=== PATIENT | male | born 1995 | race Caucasian/White ===

== ENCOUNTER 2016-07-29 00:12 | Emergency (ER) | payer OTHER ==
[2016-07-29] MEDS ORDERED: IBUPROFEN 600 MG TABLET (FP) PO ONE ×2 (00:31→00:39)
[2016-07-29] MEDS ORDERED: ALBUTEROL SO4 2.5/IPRATROPIUM 0.5 INH SOL 3 ML VIAL.NEB. NEB ONE ×2 (00:31→00:39)
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
[2016-07-29 00:36] VITALS: BP 124/71; PULSE 76; TEMP 97.9; BMI 22.8
[2016-07-29] MEDS ORDERED: predniSONE 20 MG TABLET (UD) PO ONE (01:21)
[2016-07-29] MEDS ORDERED: predniSONE 20 MG TABLET (UD) ONE (01:27)
== END 2016-07-29 01:28 | disposition home or self-care (01) ==
LOC: JER 00:12
PROC: 3E0F7GC Introduction of Other Therapeutic Substance into Respiratory Tract, Via Natural or Artificial Opening (ICD-10-PCS; principal; 2016-07-29)
DX: M54.6 Pain in thoracic spine (principal); J45.901 Unspecified asthma with (acute) exacerbation; V43.52XA Car driver injured in collision with other type car in traffic accident, initial encounter; Y92.414 Local residential or business street as the place of occurrence of the external cause; Y93.89 Activity, other specified; Y99.8 Other external cause status
CPT/HCPCS: 99282-25

== ENCOUNTER 2017-01-31 15:58 | Emergency (ER) | payer OTHER ==
--- NOTE | 2017-01-31 16:03 | PDOC ---
History of Present Illness <Morgan Luna - Last Filed: 01/31/17 16:41> - General History Source: Patient Exam Limitations: No Limitations - History of Present Illness Initial Comments: 01/31/17 16:26 The patient is a 21 year old male with a significant PMH of asthma who presents to the emergency department with an asthma exacerbation and cold-like symptoms beginning a few days ago. The patient reports waking up this morning and being very short of breath. He notes that he has been congested with an associated dry cough for a few days, which has made it difficult for him to breathe. He notes he ran out of his Albuterol inhaler 2 days ago. The patient reports he was last on Prednisone months ago. The patient reports he does not have a [employer] Developer. The patient denies chest pain, headache and dizziness. Denies fever, chills, nausea, vomit, diarrhea and constipation. Denies dysuria, frequency, urgency and hematuria. Allergies: NKA Past surgical history: None reported. Social history: No reported cigarette, alcohol, or drug use. PCP: Dr. Fuller (Hasn't seen yet, appt. on 02/10) <Miki Pitt - Last Filed: 01/31/17 16:43> - General Chief Complaint: Asthma Stated Complaint: Asthma Time Seen by Provider: 01/31/17 16:03 Past History - Past Medical History Asthma: Yes - Suicide/Smoking/Psychosocial Hx Smoking History: Never smoked Have you smoked in the past 12 months: No Hx Alcohol Use: No Drug/Substance Use Hx: No <Morgan Luna - Last Filed: 01/31/17 16:41> <Miki Pitt - Last Filed: 01/31/17 16:43> - Past Medical History Allergies/Adverse Reactions: Allergies Allergy/AdvReac Type Severity Reaction Status Date / Time No Known Allergies Allergy Verified 01/31/17 16:15 Home Medications: Ambulatory Orders Albuterol 0.083% Nebulizer Andria [Ventolin 0.083% Nebulizer Soln -] 1 neb NEB Q6H PRN #30 vial 11/22/15 Albuterol Sulfate Inhaler - [Ventolin HFA Inhaler -] 1 - 2 inh PO QID PRN #1 inhaler 11/22/15 Guaifenesin [Mucinex -] 600 mg PO BID #14 tablet.er 11/22/15 Prednisone [Deltasone] 20 mg PO DAILY #12 tablet 11/22/15 Albuterol Sulfate Inhaler - [Ventolin Hfa Inhaler -] 1 - 2 inh PO Q4H PRN #1 inhaler 07/29/16 Cyclobenzaprine HCl [Flexeril 10 mg] 10 mg PO BID PRN #6 tablet 07/29/16 Prednisone [Deltasone -] 20 mg PO DAILY #4 tablet 07/29/16 Albuterol Sulfate Inhaler - [Ventolin HFA Inhaler -] 1 - 2 inh PO QID #1 inhaler 01/31/17 Azithromycin [Zithromax -] 250 mg PO UTDICT #6 tab 01/31/17 Methylprednisolone [Medrol Dose Arsenio] 4 mg PO ASDIR #21 tablet 01/31/17 Review of Systems - Review of Systems Able to Perform ROS?: Yes Comments:: 01/31/17 16:26 GENERAL/CONSTITUTIONAL: No fever or chills. No weakness. HEAD, EYES, EARS, NOSE AND THROAT: No change in vision. No ear pain or discharge. No sore throat. CARDIOVASCULAR: (+) Shortness of breath. No chest pain. RESPIRATORY: (+) Nasal congestion. (+) Dry cough. (+) Wheezing. No hemoptysis. GASTROINTESTINAL: No nausea, vomiting, diarrhea or constipation. GENITOURINARY: No dysuria, frequency, or change in urination. MUSCULOSKELETAL: No joint or muscle swelling or pain. No neck or back pain. SKIN: No rash NEUROLOGIC: No headache, vertigo, loss of consciousness, or change in strength/ sensation. ENDOCRINE: No increased thirst. No abnormal weight change. HEMATOLOGIC/LYMPHATIC: No anemia, easy bleeding, or history of blood clots. ALLERGIC/IMMUNOLOGIC: No hives or skin allergy. <Miki Pitt - Last Filed: 01/31/17 16:43> *Physical Exam - Vital Signs Last Vital Signs Temp Pulse Resp BP Pulse Ox 98.1 F 110 H 17 138/97 100 01/31/17 16:15 01/31/17 16:15 01/31/17 16:15 01/31/17 16:15 01/31/17 16:15 - Physical Exam Comments: 01/31/17 16:26 GENERAL: Awake, alert, and fully oriented, in no acute distress HEAD: No signs of trauma EYES: PERRLA, EOMI, sclera anicteric, conjunctiva clear ENT: Auricles normal inspection, hearing grossly normal, nares patent, oropharynx clear without exudates. Moist mucosa NECK: Normal ROM, supple, no lymphadenopathy, JVD, or masses LUNGS: (+) Bilateral wheezing. No crackles. HEART: Regular rate and rhythm, normal S1 and S2, no murmurs, rubs or gallops ABDOMEN: Soft, nontender, normoactive bowel sounds. No guarding, no rebound. No masses EXTREMITIES: Normal range of motion, no edema. No clubbing or cyanosis. No cords, erythema, or tenderness NEUROLOGICAL: Cranial nerves II through XII grossly intact. Normal speech, normal gait SKIN: Warm, Dry, normal turgor, no rashes or lesions noted. <Miki Pitt - Last Filed: 01/31/17 16:43> *DC/Admit/Observation/Transfer - Discharge Dispostion Admit: No - Attestations Physician Attestion: 01/31/17 16:03 I, Dr. Morgan Luna, attest that this document has been prepared under my direction and personally reviewed by me in its entirety. I further attest, that it accurately reflects all work, treatment, procedures and medical decision -making performed by me. <Morgan Luna - Last Filed: 01/31/17 16:41> - Attestations Scribe Attestion: 01/31/17 16:27 Documentation prepared by Miki Pitt, acting as medical technologist clinical for Morgan Luna DO. <Miki Pitt - Last Filed: 01/31/17 16:43> Diagnosis at time of Disposition: Exacerbation of asthma Qualifiers: Asthma severity: mild Asthma persistence: intermittent Qualified Code(s): J45.21 - Mild intermittent asthma with (acute) exacerbation Acute bronchitis Qualifiers: Bronchitis organism: other organism Qualified Code(s): J20.8 - Acute bronchitis due to other specified organisms - Discharge Dispostion Disposition: HOME Condition at time of disposition: Improved - Prescriptions Prescriptions: Albuterol Sulfate Inhaler - [Ventolin HFA Inhaler -] 1 - 2 inh PO QID #1 inhaler Azithromycin [Zithromax -] 250 mg PO UTDICT #6 tab Methylprednisolone [Medrol Dose Arsenio] 4 mg PO ASDIR #21 tablet - Patient Instructions Printed Discharge Instructions: Asthma -- Adult, DI for Acute Bronchitis Additional Instructions: Navin - Keep your appointment with your new doctor. Use the inhaler as needed. The antibiotics and the steroid are both for five days. Return to us if worse or new symptoms occur. Cliff- Dr. Morgan Luna
[2017-01-31] MEDS ORDERED: ALBUTEROL SO4 0.083% IH SOL 2.5 MG/3 ML VIAL.NEB. NEB ONE (16:06)
[2017-01-31] MEDS ORDERED: DEXAMETHASONE SOD PHOSPHATE 10 MG/1 ML VIAL ONE (16:06)
[2017-01-31] MEDS ORDERED: methylPREDNISolone NA SUCC 125 MG/2 ML VIAL IVPUSH ONE (16:06)
[2017-01-31] MEDS ORDERED: ALBUTEROL SO4 2.5/IPRATROPIUM 0.5 INH SOL 3 ML VIAL.NEB. NEB ONE ×2 (16:06)
[2017-01-31] MEDS ORDERED: AZITHROMYCIN IVPB 500 MG in DEXTROSE 5%-WATER - 250 ML IVPB ONE (16:08)
[2017-01-31 16:21] VITALS: TEMP 98.1; BMI 22.1
[2017-01-31] MEDS ORDERED: AZITHROMYCIN IVPB 250 ML IVPB ONE (16:22)
[2017-01-31] MEDS ORDERED: methylPREDNISolone NA SUCC 125 MG/2 ML VIAL ONE ×2 (16:22→16:23)
[2017-01-31 18:23] VITALS: BP 142/75; PULSE 99
== END 2017-01-31 18:25 | disposition home or self-care (01) ==
LOC: JER 15:58
PROC: 3E0F7GC Introduction of Other Therapeutic Substance into Respiratory Tract, Via Natural or Artificial Opening (ICD-10-PCS; principal; 2017-01-31)
PROC: 3E0F7GC Introduction of Other Therapeutic Substance into Respiratory Tract, Via Natural or Artificial Opening (ICD-10-PCS; 2017-01-31)
PROC: 3E03329 Introduction of Other Anti-infective into Peripheral Vein, Percutaneous Approach (ICD-10-PCS; 2017-01-31)
PROC: 3E0333Z Introduction of Anti-inflammatory into Peripheral Vein, Percutaneous Approach (ICD-10-PCS; 2017-01-31)
DX: J45.20 Mild intermittent asthma, uncomplicated (principal); J20.8 Acute bronchitis due to other specified organisms
CPT/HCPCS: 71010-TC; 99282-25

== ENCOUNTER 2017-02-01 14:30 | Emergency (ER) | payer OTHER ==
[2017-02-01] MEDS ORDERED: ALBUTEROL SO4 2.5/IPRATROPIUM 0.5 INH SOL 3 ML VIAL.NEB. NEB ONE ×2 (14:47→14:51)
[2017-02-01] MEDS ORDERED: DEXAMETHASONE SOD PHOSPHATE 10 MG/1 ML VIAL ONE (14:47)
[2017-02-01] MEDS ORDERED: DEXAMETHASONE SOD PHOSPHATE 10 MG/1 ML VIAL IM ONE (14:50)
--- NOTE | 2017-02-01 14:54 | PDOC ---
History of Present Illness - General Chief Complaint: Shortness of Breath Stated Complaint: PCP SENT Time Seen by Provider: 02/01/17 14:50 History Source: Patient Exam Limitations: No Limitations - History of Present Illness Initial Comments: 02/01/17 14:54 Patient return to emergency department per my request. Was noted this morning to have a pneumomediastinum by Dr. Ornelas, radiologist. Multiple attempts to locate patient via cell phone and emergency contact number were unsuccessful. Was notified by the [facility] to return to ER for further evaluation and testing. . this patient was discharged yesterday with an asthma exacerbation with multiple medication prescriptions. Patient admits he Did not receive these medications due to some financial constraints and has not used any medication since is discharge yesterday. States has been out today, feels moderately improved but feels still is coughing with some intermittent wheezing. Denies alcohol or drug use. Denies fever, denies phlegm production. Has albuterol nebulizer at home but has not used that for relief. 02/01/17 14:56 Timing/Duration: reports: getting worse Severity: reports: moderate Associated Symptoms: reports: cough, facial pain, fever/chills, nasal congestion , nasal drainage, shortness of breath. denies: sore throat, wheezing Past History - Travel Traveled outside of the country in the last 30 days: No Close contact w/someone who was outside of country & ill: No - Past Medical History Allergies/Adverse Reactions: Allergies Allergy/AdvReac Type Severity Reaction Status Date / Time No Known Allergies Allergy Verified 02/01/17 15:05 Home Medications: Ambulatory Orders Albuterol Sulfate Inhaler - [Ventolin Hfa Inhaler -] 1 - 2 inh PO Q4H PRN #1 inhaler 07/29/16 Methylprednisolone [Medrol Dose Arsenio] 4 mg PO ASDIR #21 tablet 01/31/17 Acetaminophen W/ Codeine Liq [Tylenol .W/Codeine Oral Solution -] 5 ml PO Q4H # 30 ml MDD 5 02/01/17 Albuterol Sulfate [Proair Respiclick] 90 mcg IH Q6H PRN #1 aer.pow.ba 02/01/17 Prednisolone 45 mg PO BID #120 ml 02/01/17 Asthma: Yes CVA: No COPD: No DVT: No - Immunization History Immunization Up to Date: Yes - Suicide/Smoking/Psychosocial Hx Smoking History: Never smoked Have you smoked in the past 12 months: No Hx Alcohol Use: No Drug/Substance Use Hx: No Substance Use Type: None Review of Systems - Review of Systems Able to Perform ROS?: Yes Is the patient limited [place] proficient: Yes Constitutional: Yes: Symptoms Reported, See HPI, Loss of Appetite, Malaise. No : Fever HEENTM: Yes: Symptoms Reported, See HPI, Nose Congestion. No: Throat Pain Respiratory: Yes: Symptoms reported, See HPI, Cough, Shortness of Breath, Wheezing Cardiac (ROS): No: Symptoms Reported ABD/GI: Yes: See HPI, Nausea. No: Symptoms Reported, Vomiting : No: Symptoms Reported Musculoskeletal: No: Symptoms Reported All Other Systems: Reviewed and Negative *Physical Exam - Physical Exam General Appearance: Yes: Nourished, Appropriately Dressed, Mild Distress. No: Apparent Distress HEENT: positive: CHARI, Normal ENT Inspection, TMs Normal, Pharynx Normal Neck: positive: Supple. negative: Tender, Lymphadenopathy (R), Lymphadenopathy (L) Respiratory/Chest: positive: Wheezing (course inspiratory and expiratory breath sounds with wheezing and some grunting). negative: Chest Tender, Lungs Clear, Normal Breath Sounds Gastrointestinal/Abdominal: positive: Soft. negative: Tender Musculoskeletal: positive: Normal Inspection. negative: CVA Tenderness Extremity: positive: Normal Capillary Refill, Normal Range of Motion Integumentary: positive: Dry, Warm, Ecchymosis, Bruising Neurologic: positive: prepress proofer II-XII NML intact, Fully Oriented, Alert, Normal Mood/ Affect, Motor Strength 5/5. negative: Normal Response ED Treatment Course - RADIOLOGY Radiology Studies Ordered: Category Date Time Status CHEST CT WITHOUT CONTRAST [CT] Stat CT Scan 02/01/17 14:53 Ordered Progress Note - Progress Note Progress Note: Return to emergency department for reevaluation. Patient states since mildly improved but has had no medication since yesterday. We'll obtain CAT scan of chest to rule out any changes or improvement to pneumomediastinum noted in chest x-ray yesterday. We'll provide additional DuoNeb's and an additional 10 mg of Decadron Medical Decision Making - Medical Decision Making 02/01/17 17:09 Patient states feels mild improvement, is waiting for CAT scan report. Denies exquisite shortness of breath but has continued pleuritic type chest pain. Patient admits to not receiving any medications that were prescribed yesterday and has not used any of his nebulizing medications at home. Has continuous requests for promethazine with codeine for his cough. Discussed that promethazine with codeine is not recommended for an antitussive anymore due to issues with HILDA however we'll give short course of Tylenol with codeine to help with cough suppressant and mild pain relief. Fighting additional DuoNeb now while waiting for CT report. 17:30 pulmonology paged 02/01/17 18:02 CAT scan report reveals a pneumomediastinum and subcutaneous air in the supraclavicular regions of the neck bilaterally there is no visible pneumothorax. Patient remains asymptomatic, has some mild intermittent wheezing but has significantly resolved after 2 DuoNeb's and some Decadron. Patient understands plan, will review CAT scan when pulmonology returns call, paged second time 02/01/17 18:55 No return phone call from pulmonology. Patient discharged in agrees to follow up here tomorrow for repeat chest x-ray. Understands plan for nebulizers, steroids, and will use a short course of Tylenol with codeine for severe cough. Her stands will return immediately for shortness breath, chest pain, fevers or worsening of wheezing. *DC/Admit/Observation/Transfer Diagnosis at time of Disposition: Pneumomediastinum Asthma exacerbation Qualifiers: Asthma severity: moderate Asthma persistence: unspecified Qualified Code(s): J45.901 - Unspecified asthma with (acute) exacerbation - Discharge Dispostion Disposition: HOME Condition at time of disposition: Stable - Prescriptions Prescriptions: Acetaminophen W/ Codeine Liq [Tylenol .W/Codeine Oral Solution -] 5 ml PO Q4H # 30 ml MDD 5 Albuterol Sulfate [Proair Respiclick] 90 mcg IH Q6H PRN #1 aer.pow.ba PRN Reason: Wheezing Prednisolone 45 mg PO BID #120 ml - Referrals - Patient Instructions Printed Discharge Instructions: DI for Asthma -- Adult Additional Instructions: Rest, drink lots of fluids: Teas, water, soups, Pedialyte Saltwater gargles Steamy showers/seem to face break up mucus Avoid contact with others until fevers and cough resolved Lots of handwashing and good hygiene Continue [id number] medications for symptomatic relief Tylenol or Motrin for fever and pain Continue albuterol nebulizers every 4-6 hours for the next 2 days then as needed for continued cough Prednisone as directed until completed May use Tylenol with codeine 1 teaspoon every 6 hours for severe cough, understanding will make dizzy and sleepy Followup with private physician in one to 2 days Return to emergency department / pediatric hospital for worsened symptoms, fevers, dehydration - Post Discharge Activity Forms/Work/School Notes: Back to Work
[2017-02-01 15:05] VITALS: BP 129/85; PULSE 94; TEMP 98.2; BMI 22.1
== END 2017-02-01 19:01 | disposition home or self-care (01) ==
LOC: JER 14:30
PROC: 3E0337Z Introduction of Electrolytic and Water Balance Substance into Peripheral Vein, Percutaneous Approach (ICD-10-PCS; principal; 2017-02-01)
PROC: 3E023GC Introduction of Other Therapeutic Substance into Muscle, Percutaneous Approach (ICD-10-PCS; 2017-02-01)
DX: J98.2 Interstitial emphysema (principal); J45.901 Unspecified asthma with (acute) exacerbation
CPT/HCPCS: 71250-TC; 99282-25

== ENCOUNTER 2017-02-02 18:22 | Emergency (ER) | payer OTHER ==
[2017-02-02 18:40] VITALS: BP 135/71; PULSE 87; TEMP 98.7; BMI 22.1
--- NOTE | 2017-02-02 18:41 | PDOC ---
History of Present Illness - General Chief Complaint: Revisit, Lab Variance Stated Complaint: REVISIT Time Seen by Provider: 02/02/17 18:41 History Source: Patient - History of Present Illness Initial Comments: 02/02/17 23:25 Case was taken over by LESLY Liu Past History - Past Medical History Allergies/Adverse Reactions: Allergies Allergy/AdvReac Type Severity Reaction Status Date / Time No Known Allergies Allergy Verified 02/02/17 18:37 Home Medications: Ambulatory Orders Albuterol Sulfate Inhaler - [Ventolin Hfa Inhaler -] 1 - 2 inh PO Q4H PRN #1 inhaler 07/29/16 Methylprednisolone [Medrol Dose Arsenio] 4 mg PO ASDIR #21 tablet 01/31/17 Acetaminophen W/ Codeine Liq [Tylenol .W/Codeine Oral Solution -] 5 ml PO Q4H # 30 ml MDD 5 02/01/17 Albuterol Sulfate [Proair Respiclick] 90 mcg IH Q6H PRN #1 aer.pow.ba 02/01/17 Prednisolone 45 mg PO BID #120 ml 02/01/17 Asthma: Yes CVA: No COPD: No DVT: No - Immunization History Immunization Up to Date: Yes - Suicide/Smoking/Psychosocial Hx Smoking History: Never smoked Have you smoked in the past 12 months: No Information on smoking cessation initiated: No Hx Alcohol Use: No Drug/Substance Use Hx: No Substance Use Type: None *Physical Exam - Vital Signs Last Vital Signs Temp Pulse Resp BP Pulse Ox 98.7 F 87 18 135/71 100 02/02/17 18:38 02/02/17 18:38 02/02/17 18:38 02/02/17 18:38 02/02/17 18:38 *DC/Admit/Observation/Transfer Diagnosis at time of Disposition: Cough - Discharge Dispostion Disposition: HOME Condition at time of disposition: Stable - Referrals Referrals: Prashant Forbes MD [Staff Physician] - - Patient Instructions Printed Discharge Instructions: DI for Asthma -- Adult Additional Instructions: Rest, drink lots of fluids: Teas, water, soups, Pedialyte Saltwater gargles Steamy showers/seem to face break up mucus Avoid contact with others until fevers and cough resolved Lots of handwashing and good hygiene Continue [id number] medications for symptomatic relief Tylenol or Motrin for fever and pain Continue albuterol nebulizers every 4-6 hours for the next 2 days then as needed for continued cough Prednisone as directed until completed Followup with private physician in one to 2 days Return to emergency department / pediatric hospital for worsened symptoms, fevers, dehydration - Post Discharge Activity Forms/Work/School Notes: Back to Work
[2017-02-02] MEDS ORDERED: DEXAMETHASONE SOD PHOSPHATE 10 MG/1 ML VIAL ONE (18:54)
--- NOTE | 2017-02-02 18:55 | PDOC ---
Rapid Medical Evaluation Chief Complaint: Revisit, Lab Variance Time Seen by Provider: 02/02/17 18:41 Medical Evaluation: Allergies Allergy/AdvReac Type Severity Reaction Status Date / Time No Known Allergies Allergy Verified 02/02/17 18:37 Vital Signs Temp Pulse Resp BP Pulse Ox 98.7 F 87 18 135/71 100 02/02/17 18:38 02/02/17 18:38 02/02/17 18:38 02/02/17 18:38 02/02/17 18:38 02/02/17 18:53 Pt presents to the ED: continual pain to bik chest with coughing, pt told to come to the ED for repeat cxr Pt on exam: LCTA, vss Pt ordered for : cxr Pt to proceed to the ED Discharge Disposition - Diagnosis Cough - Referrals - Patient Instructions - Post Discharge Activity
[2017-02-02] MEDS ORDERED: DEXAMETHASONE SOD PHOSPHATE 10 MG/1 ML VIAL IM ONE (19:14)
--- NOTE | 2017-02-02 19:15 | PDOC ---
History of Present Illness - General Chief Complaint: Revisit, Lab Variance Stated Complaint: REVISIT Time Seen by Provider: 02/02/17 18:41 History Source: Patient Exam Limitations: No Limitations - History of Present Illness Initial Comments: 02/02/17 19:11 Patient has return per our request for repeat chest x-ray. Patient was diagnosed yesterday with pneumomediastinum, and was discharged 2 days ago with asthma exacerbation diagnosis. Patient has been noncompliant with his medications from 2 days ago discharge, however states he has been using his albuterol nebulizer at home. Patient states had his albuterol pump but has not been using that her plan. Has not yet picked up his prednisone at this pharmacy. States still has some mild pleuritic chest pain, and has not used any ibuprofen products for pain resolved. Denies fever, denies any shortness of breath, states continues to wheeze but is much improved from 2 days ago. Timing/Duration: reports: just prior to arrival Severity: reports: mild, moderate Associated Symptoms: reports: cough, fever/chills, nasal congestion Past History - Travel Traveled outside of the country in the last 30 days: No Close contact w/someone who was outside of country & ill: No - Past Medical History Allergies/Adverse Reactions: Allergies Allergy/AdvReac Type Severity Reaction Status Date / Time No Known Allergies Allergy Verified 02/02/17 18:37 Home Medications: Ambulatory Orders Albuterol Sulfate Inhaler - [Ventolin Hfa Inhaler -] 1 - 2 inh PO Q4H PRN #1 inhaler 07/29/16 Methylprednisolone [Medrol Dose Arsenio] 4 mg PO ASDIR #21 tablet 01/31/17 Acetaminophen W/ Codeine Liq [Tylenol .W/Codeine Oral Solution -] 5 ml PO Q4H # 30 ml MDD 5 02/01/17 Albuterol Sulfate [Proair Respiclick] 90 mcg IH Q6H PRN #1 aer.pow.ba 02/01/17 Prednisolone 45 mg PO BID #120 ml 02/01/17 Asthma: Yes CVA: No COPD: No DVT: No - Immunization History Immunization Up to Date: Yes - Suicide/Smoking/Psychosocial Hx Smoking History: Never smoked Have you smoked in the past 12 months: No Information on smoking cessation initiated: No Hx Alcohol Use: No Drug/Substance Use Hx: No Substance Use Type: None Review of Systems - Review of Systems Able to Perform ROS?: Yes Is the patient limited Kenyan proficient: Yes Constitutional: Yes: See HPI. No: Symptoms Reported, Fever, Loss of Appetite, Malaise HEENTM: Yes: See HPI. No: Symptoms Reported Respiratory: Yes: Symptoms reported, See HPI, Cough (with pleuritic type chest pain primarily right side), Wheezing All Other Systems: Reviewed and Negative *Physical Exam - Vital Signs Last Vital Signs Temp Pulse Resp BP Pulse Ox 98.7 F 87 18 135/71 100 02/02/17 18:38 02/02/17 18:38 02/02/17 18:38 02/02/17 18:38 02/02/17 18:38 - Physical Exam General Appearance: Yes: Nourished, Appropriately Dressed. No: Apparent Distress HEENT: positive: CHARI, Normal ENT Inspection, TMs Normal, Pharynx Normal Neck: positive: Supple. negative: Tender Respiratory/Chest: negative: Lungs Clear (has continued expiratory wheezing bilaterally however good breath sounds and no respiratory distress noted.), Wheezing Gastrointestinal/Abdominal: positive: Normal Bowel Sounds, Soft Musculoskeletal: positive: Normal Inspection Extremity: positive: Normal Capillary Refill, Normal Inspection, Normal Range of Motion Integumentary: positive: Normal Color, Dry, Warm, Pale Neurologic: positive: inspector screen printing II-XII NML intact, Fully Oriented, Alert, Normal Mood/ Affect, Normal Response, Motor Strength 5/5 ED Treatment Course - RADIOLOGY Radiology Studies Ordered: Category Date Time Status CHEST PA & LAT [RAD] Stat Radiology 02/02/17 18:41 Taken Progress Note - Progress Note Progress Note: Repeat chest x-ray shows almost completely resolved pneumomediastinum, reviewed with Dr. Velasco with comparison views. Patient updated and understands need follow-up with wellness trainer for continuing treatment for his asthma. Understands need for continued Proventil nebulizers for next 2 days and continued need for steroids to help resolve this asthma exacerbation. Will use ibuprofen products and has 30 mL of Tylenol 3 for cough. *DC/Admit/Observation/Transfer Diagnosis at time of Disposition: Cough - Discharge Dispostion Disposition: HOME Condition at time of disposition: Stable Admit: No - Referrals Referrals: Prashant Forbes MD [Staff Physician] - - Patient Instructions Printed Discharge Instructions: DI for Asthma -- Adult Additional Instructions: Rest, drink lots of fluids: Teas, water, soups, Pedialyte Saltwater gargles Steamy showers/seem to face break up mucus Avoid contact with others until fevers and cough resolved Lots of handwashing and good hygiene Continue [id number] medications for symptomatic relief Tylenol or Motrin for fever and pain Continue albuterol nebulizers every 4-6 hours for the next 2 days then as needed for continued cough Prednisone as directed until completed Followup with private physician in one to 2 days Return to emergency department / pediatric hospital for worsened symptoms, fevers, dehydration - Post Discharge Activity Forms/Work/School Notes: Back to Work
== END 2017-02-02 19:50 | disposition home or self-care (01) ==
LOC: JERFT 18:22
PROC: 3E0233Z Introduction of Anti-inflammatory into Muscle, Percutaneous Approach (ICD-10-PCS; principal; 2017-02-02)
DX: J45.909 Unspecified asthma, uncomplicated (principal)
CPT/HCPCS: 71020-TC; 99281-25

== ENCOUNTER 2017-11-09 14:42 | Emergency (ER) | payer OTHER ==
[2017-11-09 14:52] VITALS: TEMP 98.7; BMI 22.8
[2017-11-09] MEDS ORDERED: MAGNESIUM SULF 50% (8.12 MEQ/2 ML-1 GM VIAL) IVPB ONE (14:57)
[2017-11-09] MEDS ORDERED: methylPREDNISolone NA SUCC 125 MG/2 ML VIAL IVPUSH ONE (14:57)
[2017-11-09] MEDS ORDERED: ALBUTEROL SO4 2.5/IPRATROPIUM 0.5 INH SOL 3 ML VIAL.NEB. NEB ONE ×4 (14:57→16:25)
[2017-11-09] MEDS ORDERED: MAGNESIUM 1GM/D5W - 1 GM/100 ML IVPB IVPB ONE (15:10)
--- NOTE | 2017-11-09 15:15 | PDOC ---
History of Present Illness - General Chief Complaint: Asthma Stated Complaint: ASTHMA Time Seen by Provider: 11/09/17 14:54 - History of Present Illness Initial Comments: 11/09/17 15:52 Patient is a 21 year old male with a PMH of asthma (multiple hospitalizations in childhood, no intubations) presents to the ED c/o worsening shortness of breath. Shortness of breath has been present for the last 2-3 days worsening this afternoon prompting his visit to the ED this afternoon. Patient used Ventolin inhaler multiple times with minimal relief. Patient notes he has had viral URI symptoms including sore throat, cough, rhinorrhea for the last 4-5 days. Was evaluated by his PMD, Dr. Fontenot, yesterday for his cough and sore throat. States he was evaluated by Dr. Forbes in the remote past but states he has not seen a pulmonogist in 2-3 years. S/p Decadron (10 mg) by EMS en route. Patient denies chest pain, abdominal pain, nausea/vomiting, diarrhea/ constipation, dysuria/hematuria. NKDA Surgical: denies Social: denies toxic habits PMD: Dr. Fontenot As per EMR, patient was last evaluated in our ED in 01/2017 for similar symptoms at which time a CXR showed pneumomediastinum Past History - Past Medical History Allergies/Adverse Reactions: Allergies Allergy/AdvReac Type Severity Reaction Status Date / Time No Known Allergies Allergy Verified 02/02/17 18:37 Home Medications: Ambulatory Orders Albuterol Sulfate Inhaler - [Ventolin Hfa Inhaler -] 1 - 2 inh PO Q4H PRN #1 inhaler 07/29/16 Albuterol Sulfate [Proair Respiclick] 90 mcg IH Q6H PRN #1 aer.pow.ba 02/01/17 Albuterol Sulfate Inhaler - [Ventolin Hfa Inhaler -] 1 - 2 inh PO Q4H PRN #1 inhaler 11/09/17 Guaifenesin/Dextromethorphan [Robitussin Cough-Chest Dm Liq] 237 ml PO BID #1 liquid 11/09/17 Prednisone [Deltasone] 20 mg PO DAILY #5 tablet 11/09/17 Promethazine HCl/Codeine [Prometh-Codein 6.25-10 mg/5 ml] 5 ml PO TID PRN #60 ml MDD 15ml 11/09/17 Asthma: Yes CVA: No COPD: No DVT: No - Immunization History Immunization Up to Date: Yes - Suicide/Smoking/Psychosocial Hx Smoking History: Never smoked Have you smoked in the past 12 months: No Information on smoking cessation initiated: No Hx Alcohol Use: No Drug/Substance Use Hx: No Substance Use Type: None Review of Systems - Review of Systems Constitutional: No: Chills, Fever HEENTM: Yes: Throat Pain Respiratory: Yes: Cough, Shortness of Breath, Wheezing. No: Productive cough Cardiac (ROS): No: Chest Pain, Lightheadedness, Palpitations, Syncope ABD/GI: No: Constipated, Nausea, Vomiting : No: Burning, Dysuria *Physical Exam - Vital Signs Last Vital Signs Temp Pulse Resp BP Pulse Ox 98.7 F 123 H 24 H 126/79 100 11/09/17 14:46 11/09/17 14:46 11/09/17 14:46 11/09/17 14:46 11/09/17 14:46 - Physical Exam General Appearance: Yes: Nourished, Appropriately Dressed HEENT: positive: Normal Voice, Nasal Congestion, Rhinorrhea, Hearing Grossly Normal. negative: TM Bulging, TM Dull, TM Erythema Neck: positive: Supple Respiratory/Chest: positive: Rapid RR, Wheezing. negative: Rales, Rhonchi Cardiovascular: negative: Edema, JVD, Murmur Gastrointestinal/Abdominal: positive: Normal Bowel Sounds, Soft Musculoskeletal: negative: CVA Tenderness (R), CVA Tenderness (L) Extremity: positive: Normal Capillary Refill, Normal Inspection Integumentary: positive: Normal Color, Dry Neurologic: positive: Fully Oriented, Alert ED Treatment Course - RADIOLOGY Radiology Studies Ordered: Category Date Time Status CXRPORT [CHEST X-RAY PORTABLE*] [RAD] Stat Radiology 11/09/17 14:58 Ordered - Medications Given in the ED: ED Medications Discontinued Medications Generic Name Dose Route Start Last Admin Trade Name Freq PRN Reason Stop Dose Admin Albuterol/Ipratropium 2 amp 11/09/17 14:57 11/09/17 15:14 Duoneb - NEB 11/09/17 14:58 2 amp ONCE ONE Administration Magnesium Sulfate 1 gm 11/09/17 14:57 11/09/17 15:14 Magnesium Sulfate IVPB 11/09/17 14:58 1 gm ONCE ONE Administration Methylprednisolone Sodium Succinate 125 mg 11/09/17 14:57 11/09/17 15:13 Solu-Medrol - IVPUSH 11/09/17 14:58 Not Given ONCE ONE Medical Decision Making - Medical Decision Making 11/09/17 15:52 21 year old male presents with shortness of breath. Presumed asthma exacerbation. S/p Decadron (10 mg) by EMS. At presentation RR 20's, Tachycardic 120's, SpO2 98% on RA. S/p Duo Nebs x2 patient's VS improve RR 14 however continued bibasilar wheezing on PE. Will give one more Duo Neb and reassess for possible admission. As patient notes recent h/o viral URI like symptoms, will obtain rapid strep and Influenza A/B, Patient improved s/p additional Duo Neb. Rapid strep, Influenza negative Will discharge home with 5 day course of steroids, new inhaler and referral to pulmonology. Patient counseled extensively on importance of medication adherence and evaluation by pulmonology and discharged home with return precautions. *DC/Admit/Observation/Transfer Diagnosis at time of Disposition: Asthma exacerbation - Discharge Dispostion Disposition: HOME Condition at time of disposition: Good Decision to Admit order: No - Prescriptions Prescriptions: Albuterol Sulfate Inhaler - [Ventolin Hfa Inhaler -] 1 - 2 inh PO Q4H PRN #1 inhaler PRN Reason: Shortness Of Breath Guaifenesin/Dextromethorphan [Robitussin Cough-Chest Dm Liq] 237 ml PO BID #1 liquid Prednisone [Deltasone] 20 mg PO DAILY #5 tablet Promethazine HCl/Codeine [Prometh-Codein 6.25-10 mg/5 ml] 5 ml PO TID PRN #60 ml MDD 15ml PRN Reason: Cough - Referrals Referrals: Jamal Fuller MD, [Primary Care Provider] - - Patient Instructions Printed Discharge Instructions: Asthma -- Adult Additional Instructions: You were evaluated today for asthma exacerbation. At this time you are safe for discharge. We have provided a prescription for a steroid, an inhaler and a cough suppressant. Please take these medications as directed. In addition, make an appointment with Dr. Forbes, a marine equipment engineer, for evaluation of your asthma. Follow up with your primary care doctor in the next 1 week. Return to the Emergency Department for any new/worsening/concerning symptoms. - Post Discharge Activity Forms/Work/School Notes: Back to Work
--- NOTE | 2017-11-09 15:18 | PDOC ---
Attending Attestation - Resident Resident Name: KathyLinda - ED Attending Attestation I have performed the following: I have examined & evaluated the patient, The case was reviewed & discussed with the resident, I agree w/resident's findings & plan, Exceptions are as noted - HPI HPI: 11/09/17 16:09 Agree with Residents HPI - Physicial Exam PE: 11/09/17 16:09 Agree with Residents PE - Medical Decision Making 11/09/17 16:09 21-year-old asthmatic noncompliant with the Symbicort uses only his Ventolin presents to the ED with an acute asthma exacerbation appears to be triggered by recent changes in the weather and a URI No fever positive runny nose positive cause positive wheezing not reply resolved by his home Ventolin. Patient given Decadron en route to hospital by EMS magnesium Combivent nebs here in the emergency department wheezing has improved Possible discharge which short course of prednisone if no evidence of acute infection on chest x-ray. Reevaluation patient not improving despite nebs and steroids. We'll try 1 more DuoNeb if no improvement we'll observe for asthma exacerbation
[2017-11-09 16:04] VITALS: BP 125/58; PULSE 118
[2017-11-09] MEDS ORDERED: SODIUM CHLORIDE 0.9% 500 ML INFUS.BAG IV ONE (16:25)
--- NOTE | 2017-11-10 11:57 | EKG ---
Test Reason : Blood Pressure : / mmHG Vent. Rate : 114 BPM Atrial Rate : 114 BPM P-R Int : 156 ms QRS Dur : 082 ms QT Int : 308 ms P-R-T Axes : 073 061 059 degrees QTc Int : 424 ms SINUS TACHYCARDIA POSSIBLE LEFT ATRIAL ENLARGEMENT BORDERLINE ECG NO PREVIOUS ECGS AVAILABLE Confirmed by HERNÁN MATTSON, DOMENIC ([id number]) on 11/10/2017 11:57:10 AM Referred By: Confirmed By:DOMENIC JIM MD
== END 2017-11-09 17:41 | disposition home or self-care (01) ==
LOC: JER 14:42
PROC: 3E033GC Introduction of Other Therapeutic Substance into Peripheral Vein, Percutaneous Approach (ICD-10-PCS; principal; 2017-11-09)
PROC: 3E0F7GC Introduction of Other Therapeutic Substance into Respiratory Tract, Via Natural or Artificial Opening (ICD-10-PCS; 2017-11-09)
PROC: 3E0F7GC Introduction of Other Therapeutic Substance into Respiratory Tract, Via Natural or Artificial Opening (ICD-10-PCS; 2017-11-09)
DX: J45.901 Unspecified asthma with (acute) exacerbation (principal)
CPT/HCPCS: 71045-TC-FY; 87070; 87430; 87804; 93005; 93010; 99283-25; J7620

== ENCOUNTER 2017-11-10 01:08 | Observation (INO) | payer OTHER ==
[2017-11-10] MEDS ORDERED: SODIUM CHLORIDE 1,000 ML IV STA (01:18)
[2017-11-10] MEDS ORDERED: methylPREDNISolone NA SUCC 125 MG/2 ML VIAL IVPB ONE ×2 (01:18→01:30)
[2017-11-10] MEDS ORDERED: MAGNESIUM SULF 50% (8.12 MEQ/2 ML-1 GM VIAL) IVPB ONE ×2 (01:18→01:20)
--- NOTE | 2017-11-10 01:19 | PDOC ---
History of Present Illness - General Chief Complaint: Asthma Stated Complaint: S.O.B. Time Seen by Provider: 11/10/17 01:14 History Source: Patient - History of Present Illness Initial Comments: 11/10/17 02:02 21 year old male seen in the ED yesterday for wheezing and SOB patient has a history of asthma currently not compliant on symbicort. prior ED course includes chest xray, nebs, magnesium sulfate 11/10/17 02:23 Past History - Past Medical History Allergies/Adverse Reactions: Allergies Allergy/AdvReac Type Severity Reaction Status Date / Time peanut Allergy Severe Swelling Verified 11/10/17 04:11 seafood Allergy Severe Swelling Uncoded 11/10/17 04:12 Home Medications: Ambulatory Orders Albuterol Sulfate Inhaler - [Ventolin HFA Inhaler -] 1 - 2 inh PO Q4H PRN #1 inhaler 07/29/16 Albuterol Sulfate [Proair Respiclick] 90 mcg IH Q6H PRN #1 aer.pow.ba 02/01/17 Albuterol Sulfate Inhaler - [Ventolin HFA Inhaler -] 1 - 2 inh PO Q4H PRN #1 inhaler 11/09/17 Guaifenesin/Dextromethorphan [Robitussin Cough-Chest Dm Liq] 237 ml PO BID #1 liquid 11/09/17 Budesonide/Formeterol Fumarate [SYMBICORT 160/4.5mcg -] 1 inh PO BID #1 cannister 11/11/17 Methylprednisolone [Medrol Dose Arsenio] 4 mg PO ASDIR #21 tablet 11/11/17 Asthma: Yes CVA: No COPD: No DVT: No - Immunization History Immunization Up to Date: Yes - Suicide/Smoking/Psychosocial Hx Smoking History: Never smoked Have you smoked in the past 12 months: No Hx Alcohol Use: No Drug/Substance Use Hx: No Substance Use Type: None *Physical Exam - Vital Signs 11/10/17 02:53 Last Vital Signs Temp Pulse Resp BP Pulse Ox 98.7 F 120 H 22 H 119/70 100 11/10/17 01:17 11/10/17 01:17 11/10/17 01:17 11/10/17 01:17 11/10/17 01:17 - Physical Exam Respiratory/Chest: positive: Labored Respiration, Decreased Breath Sounds, Wheezing Cardiovascular: positive: Tachycardia Gastrointestinal/Abdominal: positive: Normal Bowel Sounds, Soft Extremity: positive: Normal Capillary Refill, Normal Inspection, Normal Range of Motion Integumentary: positive: Normal Color, Dry, Warm Neurologic: positive: Fully Oriented, Alert, Normal Mood/Affect ED Treatment Course - LABORATORY CBC & Chemistry Diagram: 11/11/17 06:24 11/11/17 06:24 Progress Note - Progress Note Progress Note: A: asthma exacerbation P: Duoneb magnesium SOlumedrol likely obs admission for symptoms improvement and close monitoring *DC/Admit/Observation/Transfer Diagnosis at time of Disposition: Asthma exacerbation Qualifiers: Asthma severity: moderate Asthma persistence: persistent Qualified Code(s): J45.41 - Moderate persistent asthma with (acute) exacerbation - Discharge Dispostion Disposition: HOME Condition at time of disposition: Stable - Prescriptions - Referrals - Patient Instructions - Post Discharge Activity
[2017-11-10] MEDS: ALBUTEROL SO4 0.083% IH SOL 2.5 MG/3 ML VIAL.NEB. NEB SCH ×4 (01:40→02:40)
[2017-11-10 01:53] LABS: BASO % 0.1 % (0-2.0); HEMATOCRIT 41.4 % (35.4-49); LYMPH % 6.3 % (8-40); MCH 28.8 pg (25.7-33.7); MCHC 33.8 g/dl (32.0-35.9); MEAN CELL VOLUME 85.2 fl (80-96); MEAN PLT VOLUME 6.9 fl (7.5-11.1); MONO % 2.1 % (3.8-10.2); NEUT % 91.5 % (42.8-82.8); PLATELET COUNT 319 K/MM3 (134-434); RBC 4.86 M/mm3 (4.00-5.60); RDW 13.1 % (11.9-15.9); WHITE BLOOD COUNT 7.4 K/mm3 (4.0-10.0)
[2017-11-10] MEDS ORDERED: methylPREDNISolone NA SUCC 125 MG/2 ML VIAL ONE (01:55)
[2017-11-10] MEDS ORDERED: MAGNESIUM 1GM/D5W - 1 GM/100 ML IVPB IVPB ONE (01:55)
[2017-11-10] MEDS ORDERED: ALBUTEROL SO4 0.083% IH SOL 2.5 MG/3 ML VIAL.NEB. NEB ONE (01:55)
[2017-11-10 03:03] LABS: BLOOD UREA NITROGEN 11 mg/dL (7-18); GLUCOSE,RANDOM 165 mg/dL (74-106)
[2017-11-10 03:04] LABS: ALBUMIN 3.7 g/dl (3.4-5.0); ALK PHOS 58 U/L (45-117); ANION GAP 11 MMOL/L (8-16); BILIRUBIN,TOTAL 0.4 mg/dL (0.2-1); CALCIUM 8.9 mg/dL (8.5-10.1); CHLORIDE 111 mmol/L (98-107); CO2 19 mmol/L (21-32); CREATININE 1.3 mg/dL (0.55-1.3); POTASSIUM 3.7 mmol/L (3.5-5.1); SGOT/AST 15 U/L (15-37); SGPT/ALT 18 U/L (13-61); SODIUM 141 mmol/L (136-145); TOT PROT 7.1 g/dl (6.4-8.2)
[2017-11-10 03:29] LABS: PLATELET ESTIMATE ADEQUATE
--- NOTE | 2017-11-10 04:33 | HP ---
CHIEF COMPLAINT: SOB, Wheezing PCP: Dr. Fuller HISTORY OF PRESENT ILLNESS: This is a 21 y/o young man with a past medical history of Asthma, Pneumomediastinum. Who presents to the ED revisit #2 for increased SOB, chest tightness and wheezing. Patient reports having a URI over the weekend and has been using his inhaler and nebulizer at home without improvement. On last ED visit patient was given Mg Sulfate, Solumederol and Duonebs. Patient denies fever, AP, N/V/D, constipation, dysuria. Patient denies recent travel or sick contacts. 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[place]) Allergies No Known Allergies Allergy (Verified 11/10/17 01:17) HOME MEDICATIONS: Home Medications Medication Instructions Recorded Albuterol Sulfate Inhaler - 1 - 2 inh PO Q4H PRN #1 inhaler 07/29/16 [Ventolin Hfa Inhaler -] Albuterol Sulfate [Proair 90 mcg IH Q6H PRN #1 aer.pow.ba 02/01/17 Respiclick] Albuterol Sulfate Inhaler - 1 - 2 inh PO Q4H PRN #1 inhaler 11/09/17 [Ventolin Hfa Inhaler -] Guaifenesin/Dextromethorphan 237 ml PO BID #1 liquid 11/09/17 [Robitussin Cough-Chest Dm Liq] Prednisone [Deltasone] 20 mg PO DAILY #5 tablet 11/09/17 Promethazine HCl/Codeine 5 ml PO TID PRN #60 ml MDD 15ml 11/09/17 [Prometh-Codein 6.25-10 mg/5 ml] REVIEW OF SYSTEMS CONSTITUTIONAL: chills Absent: fever, diaphoresis, generalized weakness, malaise, loss of appetite, weight change HEENT: rhinorrhea, nasal congestion, throat pain Absent: throat swelling, difficulty swallowing, mouth swelling, ear pain, eye pain, visual changes CARDIOVASCULAR: chest tightness Absent:syncope, palpitations, irregular heart rate, lightheadedness, peripheral edema RESPIRATORY: cough, shortness of breath, wheezing Absent: dyspnea with exertion, orthopnea, stridor, hemoptysis GASTROINTESTINAL: Absent: abdominal pain, abdominal distension, nausea, vomiting, diarrhea, constipation, melena, hematochezia GENITOURINARY: Absent: dysuria, frequency, urgency, hesitancy, hematuria, flank pain, genital pain MUSCULOSKELETAL: Absent: myalgia, arthralgia, joint swelling, back pain, neck pain SKIN: Absent: rash, itching, pallor HEMATOLOGIC/IMMUNOLOGIC: Absent: easy bleeding, easy bruising, lymphadenopathy, frequent infections ENDOCRINE: Absent: unexplained weight gain, unexplained weight loss, heat intolerance, cold intolerance NEUROLOGIC: Absent: headache, focal weakness or paresthesias, dizziness, unsteady gait, seizure, mental status changes, bladder or bowel incontinence PSYCHIATRIC: Absent: anxiety, depression, suicidal or homicidal ideation, hallucinations. PHYSICAL EXAMINATION Vital Signs - 24 hr 11/10/17 11/10/17 01:17 02:00 Temperature 98.7 F Pulse Rate 120 H 130 H Respiratory 22 H Rate Blood Pressure 119/70 O2 Sat by Pulse 100 100 Oximetry (%) GENERAL: Awake, alert, and fully oriented, in no acute distress. HEAD: Normal with no signs of trauma. EYES: Pupils equal, round and reactive to light, extraocular movements intact, sclera anicteric, conjunctiva clear. No lid lag. EARS, NOSE, THROAT: Ears normal, nares patent, oropharynx clear without exudates. Moist mucous membranes. NECK: Normal range of motion, supple without lymphadenopathy, JVD, or masses. LUNGS: Coarse wheeze and crackles throughout. No accessory muscle use. HEART: Tachycardic rate and regular rhythm, normal S1 and S2 without murmur, rub or gallop. ABDOMEN: Soft, nontender, not distended, normoactive bowel sounds, no guarding, no rebound, no masses. No hepatomegaly or splenomegaly. MUSCULOSKELETAL: Normal range of motion at all joints. No bony deformities or tenderness. No CVA tenderness. UPPER EXTREMITIES: 2+ pulses, warm, well-perfused. No cyanosis. No clubbing. No peripheral edema. LOWER EXTREMITIES: 2+ pulses, warm, well-perfused. No calf tenderness. No peripheral edema. NEUROLOGICAL: Cranial nerves II-XII intact. Normal speech. Normal gait. PSYCHIATRIC: Cooperative. Good eye contact. Appropriate mood and affect. SKIN: Warm, dry, normal turgor, no rashes or lesions noted, normal capillary refill. Laboratory Results - last 24 hr 11/10/17 11/10/17 01:41 01:41 WBC 7.4 RBC 4.86 Hgb 14.0 Hct 41.4 MCV 85.2 MCH 28.8 MCHC 33.8 RDW 13.1 Plt Count 319 MPV 6.9 L Absolute Neuts (auto) 6.7 Neutrophils % 91.5 H D Neutrophils % (Manual) 84.0 H Band Neutrophils % 4.0 Lymphocytes % 6.3 L D Lymphocytes % (Manual) 8.0 Monocytes % 2.1 L Monocytes % (Manual) 4 Eosinophils % 0.0 D Basophils % 0.1 Nucleated RBC % 0 Platelet Estimate Adequate Sodium 141 Potassium 3.7 Chloride 111 H Carbon Dioxide 19 L Anion Gap 11 BUN 11 Creatinine 1.3 Creat Clearance w eGFR > 60 Random Glucose 165 H Calcium 8.9 Total Bilirubin 0.4 AST 15 ALT 18 Alkaline Phosphatase 58 Total Protein 7.1 Albumin 3.7 ASSESSMENT/PLAN: This is a 21 y/o young man with a PMHx of Asthma. Placed on Observation for Acute Asthma Exacerbation, Failed Out-Patient Therapy, Tachycardia for further evaluation of their emergent condition. FEN PO fluids as tolerated Replete lytes prn Regular Diet Code Status: Full Code Dispo: Observation Problem List - Problem (1) Asthma exacerbation Assessment/Plan: - Likely secondary to URI vs PE - Chest Xray done last ED visit- normal chest - No leukocytosis, +neutrophilia - Solumederol, Duonebs given in ED - Will continue solumederol w/taper - Appreciate Pulm consult - Xopenox Neb - Atrovent neb prn - WELLS Score 1.5 - PERC 7 - Will order d-Dimer - O2 - Peak Flows Code(s): J45.901 - UNSPECIFIED ASTHMA WITH (ACUTE) EXACERBATION (2) Tachycardia Assessment/Plan: - Likely secondary to medication - EKG- ST 126bpm ST abnormality no prior study available to compare - Patient denies CP, has chest tightness 2/2 Asthma Flare - Continue cardiac monitoring - Trop I < 0.02 Code(s): R00.0 - TACHYCARDIA, UNSPECIFIED (3) Cough Assessment/Plan: - See above - Robitussin prn Code(s): R05 - COUGH (4) DVT prophylaxis Assessment/Plan: - OOB - Consider AC if LOS > 48hrs Code(s): QBL9840 - Visit type - Emergency Visit Emergency Visit: Yes ED Registration Date: 11/09/17 Care time: The patient presented to the Emergency Department on the above date and was hospitalized for further evaluation of their emergent condition. - New Patient This patient is new to me today: Yes Date on this admission: 11/10/17 - Critical Care Critical Care patient: No
[2017-11-10] MEDS ORDERED: guaiFENesin 200 MG/10 ML 10 ML UNIT-DOSE CUPS ONE (04:38)
[2017-11-10] MEDS: guaiFENesin 200 MG/10 ML 10 ML UNIT-DOSE CUPS PO PRN ×3 (04:40→23:36)
[2017-11-10 05:01] LABS: URINE APPEARANCE CLEAR; URINE BILIRUBIN NEGATIVE (<2.0 mg/dL); URINE COLOR YELLOW; URINE GLUCOSE (UA) 2+ (NEGATIVE); URINE KETONE TRACE (NEGATIVE); URINE LEUK ESTERASE NEGATIVE (NEGATIVE); URINE NITRITE NEGATIVE (NEGATIVE); URINE UROBILINOGEN NEGATIVE mg/dL (0.2-1.0)
[2017-11-10 05:02] LABS: URINE PROTEIN 1+ (NEGATIVE)
[2017-11-10 05:04] LABS: EPI CELLS RARE /HPF (FEW); URINE MUCUS FEW
[2017-11-10 05:30] LABS: COCAINE, UR NEGATIVE ng/ml (CUTOFF=300); METHADONE, UR NEGATIVE ng/ml (CUTOFF=300); OPIATES, URI NEGATIVE ng/ml (CUTOFF=300); PHENCYCLIDINE,URINE NEGATIVE ng/ml (CUTOFF=25); URINE AMPHETAMINES NEGATIVE ng/ml (CUTOFF=500); URINE BARBITURATES NEGATIVE ng/ml (CUTOFF=200); URINE BENZODIAZEPINES NEGATIVE ng/ml (CUTOFF=200)
[2017-11-10] MEDS ORDERED: LEVALBUTEROL HCL 0.63 MG/3 ML VIAL.NEB. IH SCH (08:00)
[2017-11-10] MEDS: IPRATROPIUM BR 0.02% 0.5 MG/2.5 ML VIAL.NEB. NEB PRN ×2 (09:01→16:01)
[2017-11-10] MEDS ORDERED: methylPREDNISolone NA SUCC 40 MG/1 ML VIAL IVPUSH SCH (10:00)
--- NOTE | 2017-11-10 11:09 | EKG ---
Test Reason : Blood Pressure : / mmHG Vent. Rate : 126 BPM Atrial Rate : 126 BPM P-R Int : 148 ms QRS Dur : 082 ms QT Int : 316 ms P-R-T Axes : 072 067 054 degrees QTc Int : 457 ms SINUS TACHYCARDIA NONSPECIFIC ST ABNORMALITY ABNORMAL ECG WHEN COMPARED WITH ECG OF 09-NOV-2017 15:53, NO SIGNIFICANT CHANGE WAS FOUND Confirmed by DOMENIC JIM MD ([id number]) on 11/10/2017 11:09:09 AM Referred By: Confirmed By:DOMENIC JIM MD
[2017-11-10 12:27] VITALS: BMI 23.3
--- NOTE | 2017-11-10 16:16 | PN ---
Progress Note (short form) - Note Progress Note: PULMONARY CONSULTATATION DICTATED 11/10/17 IMP ACUTE ASTHMA EXACERBATION LIKELY URI TACHYCARDIA H/O PNEUMOMEDIASTINUM PLAN IV STEROIDS INHALED BRONCHODILATORS ABX SPUTUM C+S MONITOR PEAK FLOW ANTI-TUSSIVES PFTS OUTPATIENT IGE LEVEL OUTPATIENT DR AMARO Problem List - Problems (1) DVT prophylaxis Code(s): ZLT8294 - (2) Tachycardia Code(s): R00.0 - TACHYCARDIA, UNSPECIFIED (3) Asthma exacerbation Code(s): J45.901 - UNSPECIFIED ASTHMA WITH (ACUTE) EXACERBATION (4) Cough Code(s): R05 - COUGH
--- NOTE | 2017-11-10 17:02 | CONS ---
DATE OF CONSULTATION: 11/10/2017 PULMONARY CONSULTATION REFERRING PHYSICIAN: Yvrose Hairston M.D. HISTORY OF PRESENT ILLNESS: The patient is a 21-year-old male with a past medical history of chronic asthma, never been intubated, she had pneumomediastinum, nonsmoker admitted to [facility] with complaint of 1-2 day history of increasing shortness of breath, chest tightness, and wheezing. Patient states these symptoms started a day or so prior to admission, at the time had increasing shortness of breath, chest congestion, cough productive of yellowish sputum. He also had said he had a low-grade fever. Used inhaler on frequent basis, and did not offer any improvement, at which time he presented to the emergency room. Initially he presented and he was treated with inhaled bronchodilators in the field. He had good clinical response and was discharged home. He returned back approximately 3 hours later secondary to increased shortness of breath, chest tightness, wheezing, and tachycardia. Despite use of inhalers and steroids, symptoms continue to not significantly improve, at which time he was transferred up to the medical floor for further management. He is a nonsmoker. He denies any history of occupational exposure to chemicals or fumes. There is no history of recent travel. There is questionable compliance with the Symbicort. PAST MEDICAL HISTORY: Again includes chronic asthma, pneumomediastinum. REVIEW OF SYSTEMS: Positive cough. Positive shortness of breath. Positive wheezing. Positive chest tightness. Positive tachycardia. No nausea, no vomiting. Positive low-grade fever, low-grade temperature. SOCIAL HISTORY: Nonsmoker. No ETOH. No occupational exposures. FAMILY HISTORY: Mother and brother both have asthma. CURRENT MEDICATIONS: 40 q.8, Xopenex 0.63 t.i.d., Atrovent and Robitussin. PHYSICAL EXAMINATION: GENERAL: The patient is a well-developed, well-nourished male, awake, alert, highly dyspneic, but in no acute respiratory distress. She is currently afebrile. VITAL SIGNS: Blood pressure 102/71, respiratory rate 20, temperature 97.3. HEENT: Normocephalic, atraumatic. NECK: Supple. HEART: Tachycardic S1, S2. CHEST: Diffuse bilateral inspiratory and expiratory wheezes. ABDOMEN: Soft, bowel sounds positive. EXTREMITIES: No cyanosis, edema. On physical examination, not dyspneic, well-developed, well-nourished, awake, alert, in no acute respiratory distress. LABORATORY: WBC is 7.4, hemoglobin 14, hematocrit 41.4, platelet count of 319,000. D-dimer is 320. BUN is 11, creatinine 0.8. Chest x-ray, no infiltrates and no effusion. IMPRESSION: 1. Acute asthma exacerbation, most likely secondary to URI. 2. History of pneumomediastinum. PLAN: IV steroids. Inhaled bronchodilators, p.o. antibiotics, sputum for C and S, monitor peak flow, full PFTs as outpatient as well as serum IGE level as outpatient. Serum IGE level and alpha 1 antigen as well as antitrypsin level as an outpatient. FATOU AMARO M.D. [place]/[id number]
[2017-11-10] MEDS: AZITHROMYCIN 250 MG TABLET PO SCH (17:40)
[2017-11-10] MEDS: ALBUTEROL SO4 2.5/IPRATROPIUM 0.5 INH SOL 3 ML VIAL.NEB. NEB PRN (19:10)
[2017-11-10] MEDS: methylPREDNISolone NA SUCC 40 MG/1 ML VIAL IVPUSH SCH (22:45)
[2017-11-11] MEDS: methylPREDNISolone NA SUCC 40 MG/1 ML VIAL IVPUSH SCH ×3 (02:22→16:33)
[2017-11-11] MEDS: ALBUTEROL SO4 2.5/IPRATROPIUM 0.5 INH SOL 3 ML VIAL.NEB. NEB PRN ×4 (02:51→14:03)
--- NOTE | 2017-11-11 05:45 | PN ---
Progress Note, Physician Chief Complaint: EVENTS AND NOTES REVIEWED IN BED COUGHING/MILD RESP DISTRESS - Current Medication List Current Medications: Active Medications Albuterol/Ipratropium (Duoneb -) 1 amp NEB Q4H PRN PRN Reason: SHORTNESS OF BREATH Last Admin: 11/11/17 02:51 Dose: 1 amp Azithromycin (Zithromax -) 500 mg PO DAILY CARLA Last Admin: 11/10/17 17:40 Dose: 500 mg Guaifenesin (Robitussin -) 10 ml PO Q6H PRN PRN Reason: COUGH Last Admin: 11/10/17 23:36 Dose: 10 ml Ipratropium [place] (Atrovent 0.02% Nebulizer -) 1 amp NEB Q6H PRN PRN Reason: DYSPEPSIA Stop: 11/17/17 04:33 Last Admin: 11/10/17 16:01 Dose: 1 amp Levalbuterol HCl (Xopenex) 0.63 mg IH RTID CARLA Methylprednisolone Sodium Succinate (Solu-Medrol -) 60 mg IVPUSH Q6H-IV CARLA Last Admin: 11/11/17 02:22 Dose: 60 mg - Objective Vital Signs: Vital Signs Temperature 98.2 F 11/11/17 01:54 Pulse Rate 79 11/11/17 01:54 Respiratory Rate 20 11/11/17 01:54 Blood Pressure 124/70 11/11/17 01:54 O2 Sat by Pulse Oximetry (%) 97 11/10/17 20:29 Constitutional: Yes: Mild Distress Eyes: Yes: WNL HENT: Yes: WNL Neck: Yes: WNL Cardiovascular: Yes: WNL Respiratory: Yes: Cough, On Nasal O2, Wheezes Gastrointestinal: Yes: WNL Genitourinary: Yes: WNL Musculoskeletal: Yes: WNL Extremities: Yes: WNL Edema: No Peripheral Pulses WNL: Yes Integumentary: Yes: WNL Wound/Incision: Yes: Clean/Dry Neurological: Yes: WNL ...Motor Strength: WNL Psychiatric: Yes: WNL Labs: CBC, BMP 11/10/17 01:41 11/10/17 01:41 Problem List - Problems (1) DVT prophylaxis Code(s): JFC4263 - (2) Tachycardia Code(s): R00.0 - TACHYCARDIA, UNSPECIFIED (3) Acute bronchitis Code(s): J20.9 - ACUTE BRONCHITIS, UNSPECIFIED Qualifiers: Bronchitis organism: other organism Qualified Code(s): J20.8 - Acute bronchitis due to other specified organisms (4) Asthma exacerbation Code(s): J45.901 - UNSPECIFIED ASTHMA WITH (ACUTE) EXACERBATION (5) Cough Code(s): R05 - COUGH Assessment/Plan IV ABX NEBS STEROIDS 02 SUPPORT DVT PROPHYLAXIS OOB TO CHAIR PULMONARY CONSULT
[2017-11-11] MEDS: guaiFENesin 200 MG/10 ML 10 ML UNIT-DOSE CUPS PO PRN (05:51)
[2017-11-11 07:27] LABS: HEMATOCRIT 42.1 % (35.4-49); LYMPH % 6.3 % (8-40); MCH 28.5 pg (25.7-33.7); MCHC 33.3 g/dl (32.0-35.9); MEAN CELL VOLUME 85.6 fl (80-96); MEAN PLT VOLUME 7.6 fl (7.5-11.1); MONO % 1.9 % (3.8-10.2); NEUT % 91.8 % (42.8-82.8); PLATELET COUNT 308 K/MM3 (134-434); RBC 4.92 M/mm3 (4.00-5.60); RDW 13.5 % (11.9-15.9); WHITE BLOOD COUNT 8.8 K/mm3 (4.0-10.0)
[2017-11-11 08:10] LABS: ANION GAP 7 MMOL/L (8-16); BLOOD UREA NITROGEN 20 mg/dL (7-18); CALCIUM 8.4 mg/dL (8.5-10.1); CHLORIDE 110 mmol/L (98-107); CO2 24 mmol/L (21-32); CREATININE 0.9 mg/dL (0.55-1.3); GLUCOSE,RANDOM 135 mg/dL (74-106); MAGNESIUM 2.4 mg/dL (1.8-2.4); POTASSIUM 4.3 mmol/L (3.5-5.1); SODIUM 141 mmol/L (136-145)
[2017-11-11 09:52] LABS: ACANTHOCYTES 0; ANISOCYTOSIS 0; HELMET CELLS 0; HOWELL-JOLLY BODIES 0; MACROCYTOSIS 0; OVALOCYTE 0; PLATELET ESTIMATE NORMAL; ROULEAU 0; SICKELED CELLS 0; TARGET CELLS 0; TEAR DROP CELLS 0; TOXIC GRANULATION 0
[2017-11-11] MEDS: AZITHROMYCIN 250 MG TABLET PO SCH (10:28)
--- NOTE | 2017-11-11 11:33 | PN ---
Progress Note (short form) - Note Progress Note: Feels better today. Unknown PEF. Reports running out of his Symbicort. Feels close to baseline. Intake & Output 11/08/17 11/09/17 11/10/17 11/11/17 23:59 23:59 23:59 23:59 Intake Total 700 300 Balance 700 300 Weight 158 lb 1.6 oz Last Vital Signs Temp Pulse Resp BP Pulse Ox 97.8 F 100 H 18 134/84 97 11/11/17 09:11 11/11/17 09:11 11/11/17 09:11 11/11/17 09:11 11/11/17 05:00 Active Medications Albuterol/Ipratropium (Duoneb -) 1 amp NEB Q4H PRN PRN Reason: SHORTNESS OF BREATH Last Admin: 11/11/17 08:19 Dose: 1 amp Azithromycin (Zithromax -) 500 mg PO DAILY CARLA Last Admin: 11/11/17 10:28 Dose: 500 mg Guaifenesin (Robitussin -) 10 ml PO Q6H PRN PRN Reason: COUGH Last Admin: 11/11/17 05:51 Dose: 10 ml Ipratropium [place] (Atrovent 0.02% Nebulizer -) 1 amp NEB Q6H PRN PRN Reason: DYSPEPSIA Stop: 11/17/17 04:33 Last Admin: 11/10/17 16:01 Dose: 1 amp Levalbuterol HCl (Xopenex) 0.63 mg IH RTID CARLA Methylprednisolone Sodium Succinate (Solu-Medrol -) 60 mg IVPUSH Q6H-IV CARLA Last Admin: 11/11/17 10:26 Dose: 60 mg GENERAL: Awake, alert, and fully oriented, in no acute distress. HEAD: Normal with no signs of trauma. EYES: Pupils equal, round and reactive to light, extraocular movements intact, sclera anicteric, conjunctiva clear. No lid lag. EARS, NOSE, THROAT: Ears normal, nares patent, oropharynx clear without exudates. Moist mucous membranes. NECK: Normal range of motion, supple without lymphadenopathy, JVD, or masses. LUNGS: No wheeze appreciated, fe rhonchi. No accessory muscle use. HEART: S1S2, regular rhythm ABDOMEN: Soft, nontender, not distended, normoactive bowel sounds, no guarding, no rebound, no masses. No hepatomegaly or splenomegaly. MUSCULOSKELETAL: Normal range of motion at all joints. No bony deformities or tenderness. No CVA tenderness. UPPER EXTREMITIES: 2+ pulses, warm, well-perfused. No cyanosis. No clubbing. No peripheral edema. LOWER EXTREMITIES: 2+ pulses, warm, well-perfused. No calf tenderness. No peripheral edema. NEUROLOGICAL: Non-focal PSYCHIATRIC: Cooperative. Good eye contact. Appropriate mood and affect. SKIN: Warm, dry, normal turgor, no rashes or lesions noted, normal capillary refill. Laboratory Results - last 24 hr 11/11/17 11/11/17 06:24 06:24 WBC 8.8 RBC 4.92 Hgb 14.0 Hct 42.1 MCV 85.6 MCH 28.5 MCHC 33.3 RDW 13.5 Plt Count 308 MPV 7.6 D Absolute Neuts (auto) 8.1 H Neutrophils % 91.8 H Neutrophils % (Manual) 90.1 H Band Neutrophils % 0.0 Lymphocytes % 6.3 L Lymphocytes % (Manual) 8.9 Monocytes % 1.9 L Monocytes % (Manual) 1 L Eosinophils % 0.0 Eosinophils % (Manual) 0.0 Basophils % 0.0 Basophils % (Manual) 0.0 Myelocytes % (Man) 0 Promyelocytes % (Man) 0 Blast Cells % (Manual) 0 Nucleated RBC % 0 Metamyelocytes 0 Hypochromia 0 Toxic Granulation 0 Dohle Bodies 0 Platelet Estimate Normal Polychromasia 0 Poikilocytosis 0 Basophilic Stippling 0 Anisocytosis 0 Microcytosis 0 Macrocytosis 0 Spherocytes 0 Sickle Cells 0 Target Cells 0 Tear Drop Cells 0 Ovalocytes 0 Stomatocytes 0 Helmet Cells 0 [place] Bodies 0 [place] Rings 0 [place] Cells 0 Acanthocytes (Spur) 0 Rouleaux 0 Fragmented RBCs 0 Schistocytes 0 Sodium 141 Potassium 4.3 Chloride 110 H Carbon Dioxide 24 Anion Gap 7 L BUN 20 H Creatinine 0.9 Creat Clearance w eGFR > 60 Random Glucose 135 H Calcium 8.4 L Magnesium 2.4 Problem List - Problem (1) Asthma exacerbation Assessment/Plan: Code(s): J45.901 - UNSPECIFIED ASTHMA WITH (ACUTE) EXACERBATION (2) Tachycardia Assessment/Plan: Code(s): R00.0 - TACHYCARDIA, UNSPECIFIED (3) Cough Assessment/Plan: Code(s): R05 - COUGH (4) DVT prophylaxis Assessment/Plan: Code(s): CIU3361 - PLAN: Advised strict compliance with medication and no smoking (MJ) Patient reports that he has Rx for Symbicort, Albuterol, and Predisone at his pharmacy Advised that he needs to assess his PEF as an outpatient Outpatient PFTs Continue Singulair No Pulmonary contraindication for D/C later today is stable/improved. Dr Pinto
--- NOTE | 2017-11-11 11:56 | PN ---
Progress Note, Physician Chief Complaint: Asthma exacerbation History of Present Illness: NAD Feeling much better Seen by Pulmonary - Current Medication List Current Medications: Active Medications Albuterol/Ipratropium (Duoneb -) 1 amp NEB Q4H PRN PRN Reason: SHORTNESS OF BREATH Last Admin: 11/11/17 08:19 Dose: 1 amp Azithromycin (Zithromax -) 500 mg PO DAILY CARLA Last Admin: 11/11/17 10:28 Dose: 500 mg Guaifenesin (Robitussin -) 10 ml PO Q6H PRN PRN Reason: COUGH Last Admin: 11/11/17 05:51 Dose: 10 ml Ipratropium [place] (Atrovent 0.02% Nebulizer -) 1 amp NEB Q6H PRN PRN Reason: DYSPEPSIA Stop: 11/17/17 04:33 Last Admin: 11/10/17 16:01 Dose: 1 amp Levalbuterol HCl (Xopenex) 0.63 mg IH RTID CARLA Methylprednisolone Sodium Succinate (Solu-Medrol -) 60 mg IVPUSH Q6H-IV CARLA Last Admin: 11/11/17 10:26 Dose: 60 mg - Objective Vital Signs: Vital Signs Temperature 97.8 F 11/11/17 09:11 Pulse Rate 100 H 11/11/17 09:11 Respiratory Rate 18 11/11/17 09:11 Blood Pressure 134/84 11/11/17 09:11 O2 Sat by Pulse Oximetry (%) 97 11/11/17 05:00 Constitutional: Yes: Well Nourished, No Distress, Calm Cardiovascular: Yes: Regular Rate and Rhythm Respiratory: Yes: Regular Gastrointestinal: Yes: Normal Bowel Sounds, Soft Musculoskeletal: Yes: WNL Extremities: Yes: WNL Edema: No Peripheral Pulses WNL: Yes Neurological: Yes: Alert, Oriented Psychiatric: Yes: Alert, Oriented Labs: CBC, BMP 11/11/17 06:24 11/11/17 06:24 Problem List - Problems (1) Asthma exacerbation Assessment/Plan: -Continue home meds -Symbicort 160/4.5 1 inh bid -medrol dose pack outpatient -f/u with pulmonary outpatient for PFT Code(s): J45.901 - UNSPECIFIED ASTHMA WITH (ACUTE) EXACERBATION Assessment/Plan see problem list
[2017-11-11] MEDS ORDERED: ALBUTEROL SO4 8 GM HFA INHALER IH PRN (16:36)
[2017-11-11 18:26] VITALS: BP 118/72; PULSE 95; TEMP 98.6
== END 2017-11-11 18:42 | disposition home or self-care (01) ==
LOC: JER 01:08 → JERBED 02:25 → J7W 08:33
PROVIDERS: ADMIT Internal Medicine; ATTEND Family Medicine
PROC: 3E0333Z Introduction of Anti-inflammatory into Peripheral Vein, Percutaneous Approach (ICD-10-PCS; principal; 2017-11-10)
PROC: 3E0337Z Introduction of Electrolytic and Water Balance Substance into Peripheral Vein, Percutaneous Approach (ICD-10-PCS; 2017-11-10)
PROC: 3E033GC Introduction of Other Therapeutic Substance into Peripheral Vein, Percutaneous Approach (ICD-10-PCS; 2017-11-10)
PROC: 3E0F7GC Introduction of Other Therapeutic Substance into Respiratory Tract, Via Natural or Artificial Opening (ICD-10-PCS; 2017-11-10)
DX: J45.901 Unspecified asthma with (acute) exacerbation (principal); J20.9 Acute bronchitis, unspecified; R00.0 Tachycardia, unspecified; R05 Cough; Z91.14 Patient's other noncompliance with medication regimen; Z87.09 Personal history of other diseases of the respiratory system
CPT/HCPCS: 36415; 80048; 80053; 80307; 81003; 81015; 83735; 85025; 85379; 87040; 93005; 93010; 94640; 99284-25; G0378; J7030; J7620

== ENCOUNTER 2018-04-25 12:30 | Emergency (ER) | payer OTHER ==
[2018-04-25 12:44] VITALS: BP 105/53; PULSE 67; TEMP 97.6; BMI 23.6
--- NOTE | 2018-04-25 14:19 | PDOC ---
History of Present Illness - General Chief Complaint: Injury Stated Complaint: LT HAND INJURY Time Seen by Provider: 04/25/18 13:41 - History of Present Illness Initial Comments: 04/25/18 14:15 22-year-old male without comorbidities presents for evaluation of left hand pain after a slip and fall. He's been complaining of swelling and pain to his left hand since the fall. He points to the dorsum of the left hand as the area of his discomfort. Past History - Past Medical History Allergies/Adverse Reactions: Allergies Allergy/AdvReac Type Severity Reaction Status Date / Time peanut Allergy Severe Swelling Verified 04/25/18 12:41 seafood Allergy Severe Swelling Uncoded 04/25/18 12:41 Home Medications: Ambulatory Orders Albuterol Sulfate Inhaler - [Ventolin HFA Inhaler -] 1 - 2 inh PO Q4H PRN #1 inhaler 07/29/16 Dupilumab [Dupixent] 200 mg SQ WEEKLY 04/25/18 Asthma: Yes CVA: No COPD: No DVT: No - Immunization History Immunization Up to Date: Yes - Suicide/Smoking/Psychosocial Hx Smoking History: Never smoked Have you smoked in the past 12 months: No Hx Alcohol Use: No Drug/Substance Use Hx: No Substance Use Type: None Review of Systems - Review of Systems Musculoskeletal: Yes: See HPI *Physical Exam - Vital Signs Last Vital Signs Temp Pulse Resp BP Pulse Ox 97.6 F 67 16 105/53 L 98 04/25/18 12:41 04/25/18 12:41 04/25/18 12:41 04/25/18 12:41 04/25/18 12:41 - Physical Exam Comments: 04/25/18 14:16 Left hand skin color and temperature are normal. There is a moderate amount of swelling across the dorsum of the left hand. Tenderness at the base of the second and third metacarpals. No gross sensorimotor deficits decreased car carder strength neurovascularly intact. Decreased range of motion of the wrist with tenderness about the area of the distal radial carpal joint. The DRUJ. Tenderness seems out of proportion to the examination. He is also tender to light touch. Moderate Sedation - Procedure Monitoring Vital Signs: Procedure Monitoring Vital Signs Temperature 97.6 F 04/25/18 12:41 Pulse Rate 67 04/25/18 12:41 Respiratory Rate 16 03/18/19 12:41 Blood Pressure 105/53 L 04/25/18 12:41 O2 Sat by Pulse Oximetry (%) 98 04/25/18 12:41 ED Treatment Course - RADIOLOGY Radiology Studies Ordered: Category Date Time Status WRIST W/HAND-LEFT* [RAD] Stat Radiology 04/25/18 13:49 Taken Medical Decision Making - Medical Decision Making 04/25/18 14:16 X-ray show no evidence of displaced fracture or destructive process. There seems to be a discontinuity in the radial aspect of the cortex of the third metacarpal and ulnar aspect of the second metacarpal on oblique views an AP view. Certainly nothing is displaced. I will treat this as a fracture I placed him in a volar splint and I'll have him follow-up with orthopedic surgery for further evaluation and treatment options. I have discussed these findings with him. He is in agreement with the plan. *DC/Admit/Observation/Transfer Diagnosis at time of Disposition: Sprain of hand, left - Discharge Dispostion Disposition: HOME Condition at time of disposition: Stable Decision to Admit order: No - Referrals Referrals: Jamal Fuller MD, [Primary Care Provider] - Magdaleno Wise DO [Staff Physician] - - Patient Instructions Printed Discharge Instructions: Wrist Sprain, DI for Wrist Sprain Additional Instructions: Please keep the splint in place. Follow-up with orthopedic surgery in 1-2 days for further evaluation and treatment options. Tylenol Motrin as directed for pain. Return to the emergency room for worsening symptoms. - Post Discharge Activity Forms/Work/School Notes: Back to Work
== END 2018-04-25 14:23 | disposition home or self-care (01) ==
LOC: JERFT 12:30
PROC: 2W3DX1Z Immobilization of Left Lower Arm using Splint (ICD-10-PCS; principal; 2018-04-25)
DX: S63.92XA Sprain of unspecified part of left wrist and hand, initial encounter (principal); S66.812A Strain of other specified muscles, fascia and tendons at wrist and hand level, left hand, initial encounter; W01.0XXA Fall on same level from slipping, tripping and stumbling without subsequent striking against object, initial encounter; Y93.89 Activity, other specified; Y92.89 Other specified places as the place of occurrence of the external cause; Y99.8 Other external cause status
CPT/HCPCS: 73110-TC-LT-FY; 73130-TC-LT-FY; 99281-25

== ENCOUNTER 2022-05-17 14:24 | Emergency (ER) | payer OTHER ==
[2022-05-17 14:35] VITALS: BP 125/72; PULSE 69; RESP 18; TEMP 98.1; BMI 31.7
[2022-05-17] MEDS ORDERED: IBUPROFEN 600 MG TABLET (FP) PO ONE ×2 (15:10→15:21)
== END 2022-05-17 16:54 | disposition home or self-care (01) ==
LOC: JERFT 14:24
DX: M54.2 Cervicalgia (principal); M25.512 Pain in left shoulder; M25.561 Pain in right knee; V49.50XA Passenger injured in collision with unspecified motor vehicles in traffic accident, initial encounter; Y93.I9 Activity, other involving external motion
CPT/HCPCS: 73000-TC-LT-FY; 73030-TC-LT-FY; 99283-25